=== PATIENT | female | born 1935 | race Asian ===

== ENCOUNTER 2022-04-12 10:28 | Emergency (ER) | payer SELFPAY ==
[~2022-04-12] VITALS: Ht 165.1 cm; Wt 72.6 kg
[2022-04-12 11:22] VITALS: BP_SYST 167
--- NOTE | 2022-04-12 11:33 | NUR ---
BROUGHT BACK TO BED #6 AND WILL ASSUME CARE
--- NOTE | 2022-04-12 11:38 | NUR ---
86 YEAR OLD FEMALE C/O FACIAL SWELLING AND RASH ON RIGHT SIDE OF FACE FOR 3 DAYS. PT STATES 7/10 PAIN WHEN TOUCHED. PT STATES PAIN STARTED A PIMPLE IN THE HAIRLINE ON RIGHT SIDE OF FACE AND HAS SPREAD DOWN RIGHT SIDE OF FACE INVOLVING EYE AND NOSE. PT DENIES ITCHING.
[2022-04-12] MEDS ORDERED: PRED20TA PO (12:00)
[2022-04-12] MEDS ORDERED: VALA10002 PO (12:00)
--- NOTE | 2022-04-12 12:01 | NUR ---
DR MARTINEZ AT BEDSIDE FOR EVALUATION
[2022-04-12] MEDS ORDERED: ACYCLOVIR 400 MG TABLET PO ONE (12:15)
[2022-04-12] MEDS ORDERED: predniSONE 20 MG TABLET PO ONE (12:15)
--- NOTE | 2022-04-12 12:24 | NUR ---
Patient given written and verbal discharge instructions and verbalizes understanding. ER MD discussed with patient the results and treatment provided. Patient in stable condition. ID arm band removed. Rx of VALTREX, PREDNISONE given. Patient educated on pain management and to follow up with PMD. Pain Scale 0/10. Opportunity for questions provided and answered. Medication side effect fact sheet provided.
== END 2022-04-12 12:24 | disposition home or self-care (01) ==
LOC: SED 10:28
DX: B02.9 Zoster without complications (principal); R21 Rash and other nonspecific skin eruption; Z79.899 Other long term (current) drug therapy
CPT/HCPCS: 99283; J7512